=== PATIENT | female | born 1965 ===

== ENCOUNTER 2017-02-26 10:52 | Emergency (ER) | payer BC ==
[2017-02-26 12:04] VITALS: BP 120/50
--- NOTE | 2017-02-26 12:38 | UC ---
Skin Complaint HPI - HPI Summary HPI Summary: patient has had a "cyst" on the inner right thigh for the past few days, it has opened up and has a large amount of slough in the center of the wound, does not appear to be draining, there is some tunneling noted, is painful, also has a small unopended area on the lower leg, fluctuant under the skin - History of Current Complaint Chief Complaint: UCSkin Time Seen by Provider: 02/26/17 12:16 Stated Complaint: SKIN COMPLAINT Hx Obtained From: Patient ?: No Onset/Duration: Sudden Onset Skin Exposure Onset/Duration: Days Ago Onset Severity: Mild Current Severity: Moderate Location: Discrete Character: Swelling, Hives Aggravating: Touch Alleviating: Nothing Associated Signs & Symptoms: Positive: Drainage - Allergy/Home Medications Allergies/Adverse Reactions: Allergies Allergy/AdvReac Type Severity Reaction Status Date / Time Lisinopril Allergy Coughing Verified 02/26/17 12:04 Home Medications: Home Medications Exenatide [Byetta] 10 mcg SC DAILY 02/26/17 [History Confirmed 02/26/17] Insulin Regular (Human) [Humulin R U-500 Kwikpen] 44 unit SC BID 02/26/17 [ History Confirmed 02/26/17] Losartan TAB* [Cozaar TAB*] 25 mg PO DAILY 02/26/17 [History Confirmed 02/26/17] Metoprolol Tartrate TAB* [Lopressor TAB*] 25 mg PO DAILY 02/26/17 [History Confirmed 02/26/17] amLODIPine TAB* [Norvasc 5 mg TAB*] 5 mg PO DAILY 02/26/17 [History Confirmed ] metFORMIN* [Glucophage 500 MG TAB *] 750 mg PO BID 02/26/17 [History Confirmed 02/26/17] Review of Systems Constitutional: Negative Skin: Other - open wound Eyes: Negative ENT: Negative Respiratory: Negative Cardiovascular: Negative Gastrointestinal: Negative Genitourinary: Negative Motor: Negative Neurovascular: Negative Musculoskeletal: Negative Neurological: Negative Psychological: Negative All Other Systems Reviewed And Are Negative: Yes PMH/Surg Hx/FS Hx/Imm Hx Previously Healthy: Yes - Surgical History Surgical History: Yes Surgery Procedure, Year, and Place: right knee replacement - Family History Known Family History: Negative: Cardiac Disease, Hypertension - Social History Alcohol Use: Occasionally Substance Use Type: None Smoking Status (MU): Never Smoked Tobacco Physical Exam Triage Information Reviewed: Yes Appearance: Well-Appearing, Pain Distress, Obese Vital Signs: Initial Vital Signs Temp 97.5 F 02/26/17 11:57 Pulse 94 02/26/17 11:57 Resp 16 02/26/17 11:57 BP 120/50 02/26/17 11:57 Pulse Ox 99 02/26/17 11:57 Vital Signs Reviewed: Yes Eye Exam: Normal ENT Exam: Normal Dental Exam: Normal Neck exam: Normal Neck: Positive: Supple, Nontender, No Lymphadenopathy Respiratory Exam: Normal Respiratory: Positive: Chest non-tender, Lungs clear, Normal breath sounds Cardiovascular Exam: Normal Cardiovascular: Positive: RRR, No Murmur, Pulses Normal Abdominal Exam: Normal Abdomen Description: Positive: Nontender, No Organomegaly, Soft Bowel Sounds: Positive: Present Musculoskeletal Exam: Normal Musculoskeletal: Positive: Strength Intact, ROM Intact, No Edema Neurological Exam: Normal Neurological: Positive: Alert Psychological Exam: Normal Skin: Positive: Other - large open wound, tunneling noted, small amount of bloody drainage, slough tissue in wound bed, Course/Dx - Course Course Of Treatment: hx obtained, exam performed ,meds reviewed, treated for skin infection, wound culture obtained, and recommend follow up with PCP at home - Differential Diagnoses - Skin Complaint Differential Diagnoses: Abscess, Contact Dermatitis, MRSA - Diagnoses Provider Diagnoses: hidradentitis supportiva. dm2 Discharge - Discharge Plan Condition: Stable Disposition: HOME Prescriptions: Cephalexin CAP* [Keflex CAP*] 500 mg PO QID #28 cap Patient Education Materials: Hidradenitis Suppurativa (ED) Additional Instructions: 1. take the medication as prescribed. 2. keep area cleanand dry, covered. 3. Follow up with your provider when you return home.
--- NOTE | 2017-03-02 07:13 | UC ---
Progress - Progress Note Progress Note: CONTINUE ABX. IF NOT BETTER GO TO ER, PCP , OR ID.
== END 2017-02-26 13:04 | disposition home or self-care (01) ==
LOC: UCCORT 10:52
DX: L73.2 Hidradenitis suppurativa (principal); E11.9 Type 2 diabetes mellitus without complications; Z79.4 Long term (current) use of insulin; Z79.84 Long term (current) use of oral hypoglycemic drugs; E66.9 Obesity, unspecified; Z88.8 Allergy status to other drugs, medicaments and biological substances; Z96.651 Presence of right artificial knee joint
CPT/HCPCS: 87070; 87077; 87184; 87186; 87205; 87640; 87641; 99202; G0463